=== PATIENT | male | born 1955 | race Caucasian/White ===

== ENCOUNTER 2019-02-28 10:50 | Day surgery (SDC) | payer BC ==
[2019-02-21 10:24] VITALS: BMI 29.9
[~2019-02-28 10:50] MED LIST: LACTATED RINGERS 1,000 ML IV SCH
[2019-02-28 11:32] VITALS: TEMP 97.9
[2019-02-28] MEDS ORDERED: LIDOCAINE 1% 20 ML VIAL (10MG/ML) FOR IV START INTRADERMA ONE (11:34)
[2019-02-28] MEDS ORDERED: PROPOFOL 10 MG/ML 20 ML VIAL IV ONE (12:29)
--- NOTE | 2019-02-28 12:51 | P.PCN ---
Date of Procedure: 02/28/19 Procedure(s) Performed: BRIEF HISTORY: Patient is a 63-year-old pleasant white male, scheduled for an elective colonoscopy as a part of screening for colorectal neoplasia. Last colonoscopy was 10 years ago. PROCEDURE PERFORMED: Colonoscopy. PREOPERATIVE DIAGNOSIS: Screening for colon cancer. IV sedation per Anesthesia. PROCEDURE: After informed consent was obtained, the patient, was brought into the endoscopy unit. IV sedation was administered by Anesthesia under continuous monitoring. Digital rectal examination was normal. Initially the Olympus CF-160 flexible video colonoscope was then inserted in the rectum, gradually advanced into the cecum without any difficulty. Careful examination was performed as the scope was gradually being withdrawn. Ileocecal valve and the appendiceal orifice were visualized and appeared normal. Prep was excellent. Mucosa of the cecum, ascending colon, transverse colon, descending colon, sigmoid colon, and rectum appeared normal. Retroflexion was performed in the rectum and no lesions were seen. The patient tolerated the procedure well. IMPRESSION: Normal-appearing colon from rectum to cecum with no evidence of colorectal neoplasia . RECOMMENDATIONS: Findings of this examination were discussed with the patient as well as his family. He was advised to have a repeat screening colonoscopy in 10 years.
[2019-02-28 13:06] VITALS: BP 122/80; PULSE 63; RESP 16
== END 2019-02-28 13:33 | disposition home or self-care (01) ==
LOC: ORWHC2ENDO 10:50
PROVIDERS: ATTEND Internal Medicine Gastroenterology
DX: Z12.11 Encounter for screening for malignant neoplasm of colon (principal); I10 Essential (primary) hypertension; E78.5 Hyperlipidemia, unspecified; Z79.899 Other long term (current) drug therapy; Z88.0 Allergy status to penicillin
CPT/HCPCS: G0121; J2704; 45378

== ENCOUNTER 2023-07-04 08:08 | Day surgery (SDC) | payer MEDICARE, OTHER ==
[2023-07-03 09:18] VITALS: BMI 30.3
[2023-07-04 08:53] VITALS: TEMP 97.4
[2023-07-04] MEDS ORDERED: LIDOCAINE 1% INJ 10MG/ML (20 ML MDV) ONE (09:12)
[2023-07-04] MEDS ORDERED: PROPOFOL 10 MG/ML 20 ML VIAL IV ONE (09:12)
--- NOTE | 2023-07-04 09:34 | P.PCN ---
Date of Procedure: 07/04/23 Procedure(s) Performed: Brief history: Patient is a pleasant 68-year-old white male scheduled for an elective upper endoscopy as well as colonoscopy as a part of evaluation of iron deficiency anemia. He denies any abdominal pain, nausea vomiting, rectal bleeding or melena. Procedure performed: Esophagogastroduodenoscopy with biopsy Colonoscopy Preoperative diagnosis: Iron deficiency anemia Anesthesia: [facility] Procedure: After informed consent was obtained from the patient was brought into the endoscopy unit and IV sedation was administered by anesthesia under continuous monitoring. Initially upper endoscopy was done. The Olympus GF 160 video endoscope was inserted inserted into the mouth and esophagus intubated without any difficulty and was gradually advanced into the stomach and duodenum and carefully examined. The bulb and second part of the duodenum appeared normal. Abscesses were done from the duodenum to rule out celiac disease. The scope was then withdrawn into the stomach adequately insufflated with air and upon careful examination the antrum had linear areas of erythema consistent with gastritis and biopsies were done from this area. Mucosa of the body, cardia and fundus appeared normal. The scope was then withdrawn into the esophagus. Moderate size hiatal hernia noted. The GE junction was located at 34 cm to the incisors. It appeared regular with no erythema erosions or ulcerations. Rest of the esophagus appeared normal. Patient tolerated the procedure well. At this time the patient continued to remain sedation. Initial digital rectal examination was normal. Olympus CF 160 video colonoscope was then inserted into the rectum and gradually advanced to the cecum without any difficulty. Careful examination was performed as the scope was gradually being withdrawn. The prep was excellent. The cecum, ascending colon, transverse colon, descending colon, sigmoid colon and rectum appeared normal. Retroflexion was performed in the rectum and grade 2 internal hemorrhoids were noted. Patient tolerated the procedure well. Impression: 1. Upper endoscopy revealed moderate size hiatal hernia and mild antral gastritis 2. Colonoscopy revealed small internal hemorrhoids but no evidence of colorectal neoplasia Recommendations: Findings of this examination were discussed with the patient as well as his family. He was advised to follow with the biopsy results.. Plan a repeat screening colonoscopy in 10 years.
[2023-07-04 10:11] VITALS: BP 117/75; PULSE 64; RESP 16
== END 2023-07-04 10:02 | disposition home or self-care (01) ==
LOC: ORWHC2ENDO 08:08
PROVIDERS: ATTEND Internal Medicine Gastroenterology
DX: K29.50 Unspecified chronic gastritis without bleeding (principal); D50.9 Iron deficiency anemia, unspecified; K64.8 Other hemorrhoids; K44.9 Diaphragmatic hernia without obstruction or gangrene; K64.1 Second degree hemorrhoids; I10 Essential (primary) hypertension; E78.5 Hyperlipidemia, unspecified; M19.90 Unspecified osteoarthritis, unspecified site; K21.9 Gastro-esophageal reflux disease without esophagitis; Z79.899 Other long term (current) drug therapy; Z88.0 Allergy status to penicillin
CPT/HCPCS: 88305; 45378; 43239; J2001; J2704

== ENCOUNTER → 2024-08-28 | Day surgery (SDC) | payer MEDICARE, OTHER ==
[2024-08-27 09:29] VITALS: BMI 30.7
[2024-08-28 07:51] VITALS: BP 119/75; PULSE 82; RESP 16; TEMP 97.8
== END ==
LOC: ORWHC2ENDO 07:10
PROVIDERS: ATTEND Internal Medicine Gastroenterology
DX: D50.9 Iron deficiency anemia, unspecified (principal)
CPT/HCPCS: 91110

== ENCOUNTER → 2025-02-27 | Day surgery (SDC) | payer MEDICARE, OTHER ==
[2025-02-26 09:25] VITALS: BMI 29.5
[~2025-02-27] MED LIST changes: -LACTATED RINGERS 1,000 ML IV SCH; +PROPOFOL 10 MG/ML 20 ML VIAL IV ONE
[2025-02-27] MEDS: IV FLUID CONTINUATION 1,000 ML IV ONE (12:38)
[2025-02-27 12:44] VITALS: RESP 16; TEMP 98.1
[2025-02-27] MEDS: LACTATED RINGERS 1,000 ML IV SCH (12:58)
--- NOTE | 2025-02-27 14:30 | P.PCN ---
Date of Procedure: 02/27/25 Procedure(s) Performed: BRIEF HISTORY: Patient is a 69-year-old, pleasant, white male scheduled for an upper endoscopy as a part evaluation of iron deficiency anemia. He had an upper endoscopy as well as colonoscopy in June 2023 that showed no evidence of gastritis and small hiatal hernia.. PROCEDURE PERFORMED: Esophagogastroduodenoscopy. PREOPERATIVE DIAGNOSIS: Iron deficiency anemia and negative colonoscopy in June 2023.. IV sedation per anesthesia. PROCEDURE: After informed consent was obtained, the patient was brought into the endoscopy unit. IV sedation was administered by Anesthesia under continuous monitoring. Initially the Olympus GIF-140 video endoscope was inserted into the mouth. Esophagus intubated without any difficulty. It was gradually advanced into the stomach and duodenum and carefully examined. The bulb and the second part of the duodenum appeared normal. The scope at this time was withdrawn to the stomach, adequately insufflated with air, and upon careful examination, mucosa of the antrum, and minimal gastritis. In the proximal body of the stomach multiple scattered erosions with old blood identified. No ulcerations noted. Rest of the body, cardia and the fundus appeared normal. The scope was then withdrawn into the esophagus. Moderate size hiatal hernia noted. The GE junction was located at 34 cm from the incisors. The esophagus appeared normal. There were no erosions or ulcerations seen and the patient tolerated the procedure well. IMPRESSION: 1. Multiple scattered erosions in the proximal body of the stomach with some old blood status post biopsy. 2. Moderate size hiatal hernia. RECOMMENDATIONS: The findings of this examination were discussed with the patient as well as his family. He was advised to start on Prilosec 20 mg daily for 6 weeks and avoid NSAIDs. Monitor CBC periodically..
[2025-02-27 15:06] VITALS: BP 141/91; PULSE 60
== END ==
LOC: ORWHC2ENDO 11:49
PROVIDERS: ATTEND Internal Medicine Gastroenterology
DX: K44.9 Diaphragmatic hernia without obstruction or gangrene (principal); K25.9 Gastric ulcer, unspecified as acute or chronic, without hemorrhage or perforation; D50.9 Iron deficiency anemia, unspecified; I10 Essential (primary) hypertension; E78.5 Hyperlipidemia, unspecified; K21.9 Gastro-esophageal reflux disease without esophagitis; Z79.899 Other long term (current) drug therapy; Z98.890 Other specified postprocedural states; Z88.0 Allergy status to penicillin
CPT/HCPCS: 43239; 88305